=== PATIENT | female | born 1990 | race African-American/Black ===

== ENCOUNTER 2020-12-17 01:33 | Emergency (ER) | payer OTHER ==
[2020-12-17 02:37] VITALS: BMI 29.9
[2020-12-17 03:25] LABS: BASO % 0.5 % (0-2.0); EOS % 1.2 % (0-4.5); HEMATOCRIT 39.2 % (32.4-45.2); HEMOGLOBIN 13.2 GM/dL (10.7-15.3); LYMPH % 21.9 % (8-40); MCH 32.3 pg (25.7-33.7); MCHC 33.7 g/dl (32.0-36.0); MEAN CELL VOLUME 95.7 fl (80-96); MEAN PLT VOLUME 8.7 fl (7.5-11.1); MONO % 5.3 % (3.8-10.2); NEUT % 71.1 % (42.8-82.8); PLATELET COUNT 253 10^3/uL (134-434); RDW 12.1 % (11.6-15.6); WHITE BLOOD COUNT 7.3 K/mm3 (4.0-10.0)
[2020-12-17 03:37] LABS: ALBUMIN 3.7 g/dl (3.4-5.0); BLOOD UREA NITROGEN 12.4 mg/dL (7-18); CALCIUM 9.1 mg/dL (8.5-10.1)
[2020-12-17 03:42] LABS: BILIRUBIN,TOTAL 0.3 mg/dL (0.2-1); CREATININE 0.8 mg/dL (0.55-1.3); TOT PROT 7.4 g/dl (6.4-8.2)
[2020-12-17 04:50] LABS: URINE APPEARANCE CLEAR; URINE BILIRUBIN NEGATIVE (NEGATIVE); URINE COLOR YELLOW; URINE GLUCOSE (UA) NEGATIVE (NEGATIVE); URINE KETONE NEGATIVE (NEGATIVE); URINE LEUK ESTERASE NEGATIVE (NEGATIVE); URINE NITRITE NEGATIVE (NEGATIVE); URINE PROTEIN NEGATIVE (NEGATIVE); URINE UROBILINOGEN 0.2 mg/dL (0.2-1.0)
[2020-12-17] MEDS ORDERED: ACETAMINOPHEN 500 MG TABLET (FP) PO ONE (05:48)
[2020-12-17] MEDS ORDERED: ACETAMINOPHEN 325 MG TABLET (FP) ONE (06:20)
[2020-12-17 06:48] VITALS: BP 107/75; PULSE 80; TEMP 99.3
== END 2020-12-17 09:40 | disposition home or self-care (01) ==
LOC: JER 01:33
DX: O26.851 Spotting complicating pregnancy, first trimester (principal); Z3A.01 Less than 8 weeks gestation of pregnancy
CPT/HCPCS: 36415; 76830-TC; 80053; 81003; 84702; 85025; 86850; 86900; 86901; 87086; 99284-25

== ENCOUNTER 2021-06-12 16:20 | Inpatient (IN) | payer OTHER ==
[2021-06-12 17:26] VITALS: BMI 34.2
[2021-06-12] MEDS ORDERED: hydrALAZINE HCL 20 MG/ML VIAL ONE (17:50)
[2021-06-12] MEDS ORDERED: hydrALAZINE HCL 20 MG/ML VIAL IVPUSH ONE ×2 (17:56→18:17)
[2021-06-12] MEDS ORDERED: ELECTROLYTE-148 SOLN 1,000 ML IV SCH (18:00)
[2021-06-12] MEDS ORDERED: LABETALOL HCL 5 MG/1 ML (100MG/20 ML VIAL) IVPUSH ONE ×2 (18:46→19:31)
[2021-06-12] MEDS ORDERED: LABETALOL HCL 5 MG/1 ML (100MG/20 ML VIAL) ONE (18:50)
[2021-06-12] MEDS ORDERED: MAGNESIUM 4GM/H20 - 4 GM/100 ML IVPB IVPB SCH (19:00)
[2021-06-12] MEDS ORDERED: MAGNESIUM SULFATE 20GM/500ML - 20 GM/500 ML INFUS.BAG IV SCH (19:00)
[2021-06-12] MEDS ORDERED: BETAMET ACET/BETAMET NA PH 30 MG/5 ML VIAL IM ONE (19:24)
[2021-06-12 19:48] LABS: BASO % 0.3 % (0-2.0); EOS % 0.5 % (0-4.5); HEMATOCRIT 37.6 % (32.4-45.2); HEMOGLOBIN 13.1 GM/dL (10.7-15.3); MCH 33.4 pg (25.7-33.7); MCHC 34.9 g/dl (32.0-36.0); MEAN CELL VOLUME 95.9 fl (80-96); MEAN PLT VOLUME 9.2 fl (7.5-11.1); MONO % 5.8 % (3.8-10.2); NEUT % 73.4 % (42.8-82.8); PLATELET COUNT 240 10^3/uL (134-434); RBC 3.92 M/mm3 (3.60-5.2); RDW 12.5 % (11.6-15.6); WHITE BLOOD COUNT 8.7 K/mm3 (4.0-10.0)
[2021-06-12 19:58] LABS: INR 0.96 (0.83-1.09); PROTHROMBIN TIME (PATIENT) 10.8 SEC (9.7-13.0)
[2021-06-12 20:01] LABS: ACTIVATED PTT 29.7 SECONDS (25.2-36.5)
[2021-06-12] MEDS ORDERED: BETAMET ACET/BETAMET NA PH 30 MG/5 ML VIAL ONE (20:01)
[2021-06-12 20:13] LABS: CALCIUM 8.9 mg/dL (8.5-10.1)
[2021-06-12 20:17] LABS: CREATININE 0.7 mg/dL (0.55-1.3); URIC ACID 5.5 mg/dL (2.6-7.2)
[2021-06-12 22:44] VITALS: TEMP 98.4
[2021-06-12 22:46] VITALS: BP 150/98; PULSE 89
== END 2021-06-12 21:47 | disposition short-term general hospital (02) | DRG 833 ==
LOC: JLDR 16:20
PROVIDERS: ADMIT Obstetrics & Gynecology; ATTEND Obstetrics & Gynecology
DX: O11.3 Pre-existing hypertension with pre-eclampsia, third trimester (principal); O99.213 Obesity complicating pregnancy, third trimester; Z3A.29 29 weeks gestation of pregnancy
CPT/HCPCS: 36415; 80048; 82977; 83010; 84450; 84460; 84550; 85025; 85045; 85610; 85730; 86850; 86900; 86901; 96372; C9803; U0003; U0005